=== PATIENT | female | born 1995 | race Caucasian/White ===

== ENCOUNTER 2018-12-20 16:51 | Emergency (ER) | payer OTHER, SELFPAY ==
[2018-12-20 17:31] VITALS: BP 113/72; PULSE 88; RESP 13; TEMP 36.8; O2SAT 100
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
[2018-12-20] MEDS: IBUPROFEN 400 MG TABLET PO (18:32)
[2018-12-20 19:13] VITALS: BP 113/65; PULSE 81; O2SAT 100
== END 2018-12-20 19:13 | disposition home or self-care (01) ==
PROVIDERS: Emergency Provider Emergency Medicine
DX: S29.019A Strain of muscle and tendon of unspecified wall of thorax, initial encounter (principal); S39.012A Strain of muscle, fascia and tendon of lower back, initial encounter; V49.9XXA Car occupant (driver) (passenger) injured in unspecified traffic accident, initial encounter
CPT/HCPCS: 72070; 81025; 99282; 99283